=== PATIENT | female | born 1965 | race Hispanic/Latino ===

== ENCOUNTER 2023-02-25 09:59 | Emergency (ER) | payer BC, OTHER ==
[~2023-02-25] VITALS: Ht 152.4 cm; Wt 95.3 kg
[2023-02-25] MEDS ORDERED: LABETALOL 20MG SYG IV ONE ×2 (10:11→10:30)
[2023-02-25 10:23] LABS: HEMATOCRIT 41.5 % (36-48); MEAN CORPUSCULAR HEMOGLOBIN 29.2 pg (27.0-33.0); MEAN CORPUSCULAR HGB CONC 32.5 g/dL (32.0-36.0); MEAN CORPUSCULAR VOLUME 89.8 fL (79-99); RED BLOOD CELL COUNT(AUTO) 4.62 MIL/uL (4.00-5.50); RED CELL DISTRIBUTION WIDTH 12.8 % (11.0-15.5); WHITE BLOOD COUNT (AUTO) 14.9 K/uL (4.8-10.8)
[2023-02-25] MEDS ORDERED: NITROGLYCERIN 1GM OINT 1 INCH/1GM TD ONE ×2 (10:24→10:30)
[2023-02-25 10:36] LABS: CREATININE 0.8 mg/dL (0.5-1.5); MAGNESIUM 1.6 mg/dL (1.80-2.40); POTASSIUM 3.4 mmol/L (3.5-5.1)
[2023-02-25] MEDS ORDERED: METOCLOPRAMIDE 10 MG/2 ML VIAL IVP ONE (11:00)
[2023-02-25] MEDS ORDERED: MORPHINE 2 MG SYG IVP ONE (11:00)
[2023-02-25] MEDS ORDERED: NICARDIPINE 25MG INJ 50 MG in 0.9% NACL 250ML 230 ML IV SCH (11:04)
[2023-02-25] MEDS ORDERED: MANNITOL 25% 50ML VIAL IV SCH (11:30)
[2023-02-25] MEDS ORDERED: LEVETIRACETAM 500 MG/5 ML SD VIAL IV SCH (11:30)
[2023-02-25 12:36] LABS: APPEARANCE,URINE CLEAR (CLEAR); BILIRUBIN,URINE NEGATIVE (NEGATIVE); COLOR,URINE LIGHT-YELLOW (YELLOW); GLUCOSE, URINE (UA) 500 mg/dL (NEGATIVE); KETONES,URINE NEGATIVE (NEGATIVE); LEUKOCYTE ESTERASE ,URINE NEGATIVE Leu/uL (NEGATIVE); NITRATE,URINE NEGATIVE (NEGATIVE); PROTEIN,URINE 100 mg/dL (NEGATIVE); UROBILINOGEN,URINE 0.2 mg/dL (0.2-1.0)
[2023-02-25 12:39] LABS: ADD UA MICROSCOPIC YES
[2023-02-25 12:41] LABS: MUCUS,URINE RARE LPF (None Seen)
[2023-02-25] MEDS ORDERED: MIDAZOLAM 50MG-0.9% NS 50ML 1 ML in MIDAZOLAM 50MG-0.9% NS 50ML 50 ML IV SCH (14:30)
[2023-02-25] MEDS ORDERED: PROPOFOL 1000 MG/100 ML 100 ML IV ONE (14:32)
[2023-02-25] MEDS ORDERED: PROPOFOL 1000 MG/100 ML 1,000 MG in PROPOFOL 1000 MG/100 ML 100 ML IV PRN (15:00)
[2023-02-25 16:14] VITALS: BP 152/82; PULSE 74; RESP 18; O2SAT 99
== END 2023-02-25 17:26 | disposition short-term general hospital (02) ==
LOC: EDH 09:59
DX: I16.1 Hypertensive emergency (principal); I60.9 Nontraumatic subarachnoid hemorrhage, unspecified; I10 Essential (primary) hypertension
CPT/HCPCS: 99285; 31500; 96374; 96375; 70450; 71045 ×2; 83735; 84484; 80048; 83880; 85027; 81001; 36415; 93005; J1953; J2270; J2150 ×2; J3490; J2704; J2765; J7050; 94002